=== PATIENT | female | born 1940 | race Caucasian/White ===

== ENCOUNTER 2019-04-18 15:15 | Inpatient (IN) | payer OTHER ==
[~2019-04-18] VITALS: Ht 144.8 cm; Wt 67.6 kg
[2019-04-18 15:32] VITALS: BP_SYST 132
[2019-04-18 16:53] LABS: HEMATOCRIT 27.4 % (36-48); HEMOGLOBIN 9.2 g/dL (12.0-16.0); MEAN CORPUSCULAR HEMOGLOBIN 35 pg (27-31); MEAN CORPUSCULAR HGB CONC 34 % (32-36); MEAN CORPUSCULAR VOLUME 103 fL (79.0-98.0); PLATELET COUNT (AUTO) 179 K/uL (130-430); RED BLOOD CELL COUNT(AUTO) 2.66 MIL/uL (4.2-6.2); RED CELL DISTRIBUTION WIDTH 21.5 % (9.0-15.0); WHITE BLOOD COUNT (AUTO) 9.6 K/uL (4.8-10.8)
[2019-04-18] MEDS ORDERED: cefTRIAXone 1 GM IVPB PREMIX 50 ML IV ONE (17:30)
[2019-04-18 17:31] LABS: INR 1.1 (0.8-1.2); PROTHROMBIN TIME 10.8 SECS (9.5-12.5)
[2019-04-18 17:32] LABS: ANION GAP 4 (5-15); CALCIUM 11.2 mg/dL (8.4-11.0); CHLORIDE 96 mmol/L (98-107); CREATININE 2.09 mg/dL (0.55-1.30); GLUCOSE 70 mg/dL (70-99); POTASSIUM 5.5 mmol/L (3.5-5.1); SODIUM SERUM 130 mmol/L (136-145); UREA NITROGEN, BLOOD 62 mg/dL (8-21)
[2019-04-18 17:33] LABS: BAND % (MANUAL) 5 % (0-6); LYMPHOCYTES % (MANUAL) 12 % (20-46)
[2019-04-18 17:34] LABS: BASOPHILS % (MANUAL) 0 % (0-2); EOSINOPHILS % (MANUAL) 7 % (0-7); MONOCYTES % (MANUAL) 17 % (0-11)
[2019-04-18 17:38] LABS: ALANINE AMINOTRANSFERASE 7 U/L (12-78); ALBUMIN 2.7 g/dL (3.4-4.8); ASPARTATE AMINOTRANSFERASE 16 U/L (10-37); TOTAL BILIRUBIN 0.6 mg/dL (0.0-1.0)
[2019-04-18 19:18] LABS: BILIRUBIN,URINE NEGATIVE (NEGATIVE); BLOOD, URINE 3+ (NEGATIVE); CLARITY/URINE SL CLOUDY (CLEAR); COLOR,URINE YELLOW (YELLOW); GLUCOSE,URINE NEGATIVE (NEGATIVE); KETONES,URINE NEGATIVE (NEGATIVE); LEUKOCYTE ESTERASE ,URINE 3+ (NEGATIVE); NITRITE, URINE NEGATIVE (NEGATIVE); PROTEIN URINE 2+ (NEGATIVE); UROBILINOGEN,URINE 0.2 (0.2-1.0)
[2019-04-18 19:40] LABS: BACTERIA,URINE FEW /HPF (None Seen); RBC,URINE 20-50 /HPF (0-3); URINE AMORPHOUS URATE 1+ /HPF (None Seen); WBC,URINE 20-50 /HPF (0-3)
[2019-04-18] MEDS ORDERED: IPRATROPIUM/ALBUTEROL SULFATE 3 ML AMPUL.NEB (DUONEB) INH PRN (20:45)
[2019-04-18 20:59] VITALS: BP_SYST 132
[2019-04-18 21:55] VITALS: BP_SYST 132
[2019-04-18] MEDS ORDERED: SODIUM POLYSTYRENE SULFONATE 15 GM/60 ML UDBTL GT ONE (22:45)
[2019-04-18] MEDS ORDERED: VANCOMYCIN HCL 1 GM/NS PREMIX 250 ML IV ONE (22:45)
[2019-04-18] MEDS: IPRATROPIUM/ALBUTEROL SULFATE 3 ML AMPUL.NEB (DUONEB) INH SCH (23:03)
[2019-04-19] VITALS: BP_SYST 114
[2019-04-19] MEDS ORDERED: VANCOMYCIN HCL 1000 MG/VIAL IV ONE ×2 (00:53→21:11)
[2019-04-19] MEDS ORDERED: PIPERACILLIN/TAZOBACTAM 2.25 GM VIAL IV ONE (00:53)
[2019-04-19] MEDS: PIPERACILLIN/TAZO 2.25G/DEX-IS 50 ML IV SCH ×2 (02:29→08:26)
[2019-04-19 05:59] LABS: BASOPHILS # (AUTO) 0.1 K/uL (0.0-0.2); BASOPHILS % (AUTO) 0.5 % (0.0-2.0); EOSINOPHILS # (AUTO) 0.4 K/uL (0.0-0.4); EOSINOPHILS % (AUTO) 3.8 % (0.0-4.0); HEMOGLOBIN 8.6 g/dL (12.0-16.0); LYMPHOCYTES # (AUTO) 1.2 K/uL (1.0-5.5); LYMPHOCYTES % (AUTO) 10.6 % (20.5-51.5); MEAN CORPUSCULAR HEMOGLOBIN 34 pg (27-31); MEAN CORPUSCULAR HGB CONC 33 % (32-36); MEAN CORPUSCULAR VOLUME 103 fL (79.0-98.0); MONOCYTES # (AUTO) 1.9 K/uL (0.0-1.0); MONOCYTES % (AUTO) 16.3 % (1.7-9.3); NEUTROPHILS # (AUTO) 8.1 K/uL (1.8-7.7); NEUTROPHILS % (AUTO) 68.8 % (40.0-70.0); PLATELET COUNT (AUTO) 175 K/uL (130-430); RED BLOOD CELL COUNT(AUTO) 2.52 MIL/uL (4.2-6.2); RED CELL DISTRIBUTION WIDTH 21.5 % (9.0-15.0)
[2019-04-19 06:26] LABS: INR 1.1 (0.8-1.2); PROTHROMBIN TIME 10.8 SECS (9.5-12.5)
[2019-04-19 06:48] LABS: SODIUM SERUM 133 mmol/L (136-145)
[2019-04-19 06:49] LABS: ANION GAP 9 (5-15); ASPARTATE AMINOTRANSFERASE 20 U/L (10-37); CALCIUM 10.6 mg/dL (8.4-11.0); CHLORIDE 97 mmol/L (98-107); CREATININE 2.38 mg/dL (0.55-1.30); GLUCOSE 108 mg/dL (70-99); POTASSIUM 5.5 mmol/L (3.5-5.1); TOTAL BILIRUBIN 0.6 mg/dL (0.0-1.0); UREA NITROGEN, BLOOD 71 mg/dL (8-21)
[2019-04-19 06:50] LABS: ALANINE AMINOTRANSFERASE 7 U/L (12-78); ALBUMIN 2.5 g/dL (3.4-4.8); FREE T4 (FREE THYROXINE) 0.9 ng/dL (0.6-1.6); PHOSPHORUS 4.4 mg/dL (2.7-4.5); THYROID STIMULATING HORMONE 12.24 uIu/mL (0.34-4.82)
[2019-04-19 07:04] LABS: WHITE BLOOD COUNT (AUTO) 11.8 K/uL (4.8-10.8)
[2019-04-19] MEDS: IPRATROPIUM/ALBUTEROL SULFATE 3 ML AMPUL.NEB (DUONEB) INH SCH ×5 (07:24→23:09)
[2019-04-19 08:00] VITALS: BP_SYST 118
[2019-04-19 12:00] VITALS: BP_SYST 106
[2019-04-19] MEDS ORDERED: MIDO10TA GT ×2 (13:32→13:49)
[2019-04-19] MEDS ORDERED: ALBUMIN HUMAN 25% 100 ML IV ONE (13:45)
[2019-04-19] MEDS ORDERED: LEVE1000 GT (13:49)
[2019-04-19] MEDS ORDERED: DEPAK250 GT (13:49)
[2019-04-19] MEDS ORDERED: GABA-529 GT (13:49)
[2019-04-19] MEDS ORDERED: LANS30CA56 GT (13:49)
[2019-04-19] MEDS ORDERED: LEVO75TA7 GT (13:49)
[2019-04-19] MEDS ORDERED: IPRA4AER INH (13:49)
[2019-04-19] MEDS ORDERED: DEXT30DR6 EACH EYE (13:49)
[2019-04-19] MEDS ORDERED: LOVI40 SQ (13:49)
[2019-04-19] MEDS ORDERED: TYLL650 GT (13:49)
[2019-04-19] MEDS ORDERED: HEPARIN SODIUM,PORCINE 5000 UNITS/ML VIAL MC ONE (16:45)
[2019-04-19 16:50] VITALS: BP_SYST 99
[2019-04-19 20:00] VITALS: BP_SYST 102
[2019-04-19] MEDS: MEROPENEM 500 MG in NS 50 ML IV SCH (21:19)
[2019-04-19] MEDS ORDERED: VANCOMYCIN HCL 1 GM/NS PREMIX 250 ML IV ONE (22:00)
[2019-04-20 01:11] VITALS: BP_SYST 109
[2019-04-20] MEDS: IPRATROPIUM/ALBUTEROL SULFATE 3 ML AMPUL.NEB (DUONEB) INH SCH ×5 (02:10→19:54)
[2019-04-20 05:47] LABS: BASOPHILS % (AUTO) 0.5 % (0.0-2.0); EOSINOPHILS # (AUTO) 0.1 K/uL (0.0-0.4); HEMATOCRIT 23.2 % (36-48); HEMOGLOBIN 7.9 g/dL (12.0-16.0); LYMPHOCYTES # (AUTO) 1.4 K/uL (1.0-5.5); LYMPHOCYTES % (AUTO) 12.4 % (20.5-51.5); MEAN CORPUSCULAR HEMOGLOBIN 35 pg (27-31); MEAN CORPUSCULAR HGB CONC 34 % (32-36); MEAN CORPUSCULAR VOLUME 102 fL (79.0-98.0); MONOCYTES # (AUTO) 1.9 K/uL (0.0-1.0); MONOCYTES % (AUTO) 17.8 % (1.7-9.3); NEUTROPHILS # (AUTO) 7.5 K/uL (1.8-7.7); NEUTROPHILS % (AUTO) 68.3 % (40.0-70.0); PLATELET COUNT (AUTO) 137 K/uL (130-430); RED BLOOD CELL COUNT(AUTO) 2.27 MIL/uL (4.2-6.2); RED CELL DISTRIBUTION WIDTH 21.3 % (9.0-15.0)
[2019-04-20 06:12] LABS: ALANINE AMINOTRANSFERASE 10 U/L (12-78); ALBUMIN 2.9 g/dL (3.4-4.8); ANION GAP 5 (5-15); ASPARTATE AMINOTRANSFERASE 18 U/L (10-37); CALCIUM 10.4 mg/dL (8.4-11.0); CHLORIDE 101 mmol/L (98-107); CREATININE 1.75 mg/dL (0.55-1.30); GLUCOSE 122 mg/dL (70-99); PHOSPHORUS 3.7 mg/dL (2.7-4.5); POTASSIUM 3.6 mmol/L (3.5-5.1); SODIUM SERUM 139 mmol/L (136-145); TOTAL BILIRUBIN 0.5 mg/dL (0.0-1.0); UREA NITROGEN, BLOOD 44 mg/dL (8-21)
[2019-04-20 08:21] VITALS: BP_SYST 127; BP_SYST 128
[2019-04-20] MEDS: MEROPENEM 500 MG in NS 50 ML IV SCH ×2 (08:35→21:00)
[2019-04-20] MEDS ORDERED: EPOETIN ALFA 10,000 UNITS/ML VIAL SUBCUT ONE (10:45)
[2019-04-20 10:52] LABS: TOTAL IRON BIND. CAPACITY 202 ug/dL (250-450)
[2019-04-20 12:46] VITALS: BP_SYST 114
[2019-04-20 16:14] VITALS: BP_SYST 108
[2019-04-20] MEDS: MUPIROCIN 2% TOPICAL OINTMENT 22 GM NS SCH ×2 (16:17→21:00)
[2019-04-20] MEDS: SOD FERRIC GLUC COMPLEX/SUC 125 MG in NS 100 ML IV SCH (16:18)
[2019-04-20] MEDS: ACETAMINOPHEN 650 MG/20.3 ML UDC PO PRN (18:09)
[2019-04-20 20:00] VITALS: BP_SYST 112
[2019-04-21 00:06] VITALS: BP_SYST 96
[2019-04-21] MEDS: IPRATROPIUM/ALBUTEROL SULFATE 3 ML AMPUL.NEB (DUONEB) INH SCH ×7 (02:48→23:26)
[2019-04-21 08:00] VITALS: BP_SYST 111
[2019-04-21] MEDS: MUPIROCIN 2% TOPICAL OINTMENT 22 GM NS SCH ×2 (08:44→20:38)
[2019-04-21] MEDS: MEROPENEM 500 MG in NS 50 ML IV SCH ×2 (08:44→20:38)
[2019-04-21 08:59] LABS: ANION GAP 12 (5-15); CALCIUM 10.8 mg/dL (8.4-11.0); CHLORIDE 100 mmol/L (98-107); CREATININE 2.54 mg/dL (0.55-1.30); GLUCOSE 128 mg/dL (70-99); POTASSIUM 4.4 mmol/L (3.5-5.1); SODIUM SERUM 142 mmol/L (136-145); UREA NITROGEN, BLOOD 70 mg/dL (8-21)
[2019-04-21] MEDS ORDERED: ENOXAPARIN SODIUM 30 MG/0.3 ML SYRINGE SUBCUT SCH (09:00)
[2019-04-21 09:03] LABS: BASOPHILS # (AUTO) 0.1 K/uL (0.0-0.2); BASOPHILS % (AUTO) 0.6 % (0.0-2.0); EOSINOPHILS # (AUTO) 0.2 K/uL (0.0-0.4); EOSINOPHILS % (AUTO) 1.1 % (0.0-4.0); HEMATOCRIT 23.3 % (36-48); HEMOGLOBIN 7.8 g/dL (12.0-16.0); LYMPHOCYTES # (AUTO) 1.4 K/uL (1.0-5.5); LYMPHOCYTES % (AUTO) 9.8 % (20.5-51.5); MEAN CORPUSCULAR HEMOGLOBIN 35 pg (27-31); MEAN CORPUSCULAR HGB CONC 33 % (32-36); MEAN CORPUSCULAR VOLUME 104 fL (79.0-98.0); MONOCYTES # (AUTO) 2.4 K/uL (0.0-1.0); MONOCYTES % (AUTO) 17.4 % (1.7-9.3); NEUTROPHILS % (AUTO) 71.1 % (40.0-70.0); PLATELET COUNT (AUTO) 122 K/uL (130-430); RED BLOOD CELL COUNT(AUTO) 2.25 MIL/uL (4.2-6.2); RED CELL DISTRIBUTION WIDTH 21.5 % (9.0-15.0); WHITE BLOOD COUNT (AUTO) 14.1 K/uL (4.8-10.8)
[2019-04-21 09:05] LABS: ALANINE AMINOTRANSFERASE 11 U/L (12-78); ALBUMIN 2.6 g/dL (3.4-4.8); ASPARTATE AMINOTRANSFERASE 27 U/L (10-37); PHOSPHORUS 5.7 mg/dL (2.7-4.5); TOTAL BILIRUBIN 0.5 mg/dL (0.0-1.0)
[2019-04-21 10:25] VITALS: BP_SYST 111
[2019-04-21 12:00] VITALS: BP_SYST 131
[2019-04-21] MEDS ORDERED: HEPARIN SODIUM, PORCINE 10,000 UNITS/ 10 ML VIAL MC ONE (13:45)
[2019-04-21] MEDS: SOD FERRIC GLUC COMPLEX/SUC 125 MG in NS 100 ML IV SCH (14:06)
[2019-04-21 16:00] VITALS: BP_SYST 131
[2019-04-21] MEDS: ACETAMINOPHEN 650 MG/20.3 ML UDC PO PRN (18:20)
[2019-04-21 20:00] VITALS: BP_SYST 85
[2019-04-22 00:32] VITALS: BP_SYST 102
[2019-04-22] MEDS: IPRATROPIUM/ALBUTEROL SULFATE 3 ML AMPUL.NEB (DUONEB) INH SCH ×6 (03:49→23:30)
[2019-04-22 07:22] LABS: BASOPHILS # (AUTO) 0.2 K/uL (0.0-0.2); BASOPHILS % (AUTO) 1.3 % (0.0-2.0); EOSINOPHILS # (AUTO) 0.1 K/uL (0.0-0.4); EOSINOPHILS % (AUTO) 0.5 % (0.0-4.0); HEMATOCRIT 26.7 % (36-48); HEMOGLOBIN 9.1 g/dL (12.0-16.0); LYMPHOCYTES # (AUTO) 1.9 K/uL (1.0-5.5); LYMPHOCYTES % (AUTO) 14.5 % (20.5-51.5); MEAN CORPUSCULAR HEMOGLOBIN 34 pg (27-31); MEAN CORPUSCULAR HGB CONC 34 % (32-36); MEAN CORPUSCULAR VOLUME 99 fL (79.0-98.0); MONOCYTES # (AUTO) 2.4 K/uL (0.0-1.0); MONOCYTES % (AUTO) 18.1 % (1.7-9.3); NEUTROPHILS # (AUTO) 8.8 K/uL (1.8-7.7); NEUTROPHILS % (AUTO) 65.6 % (40.0-70.0); PLATELET COUNT (AUTO) 120 K/uL (130-430); RED CELL DISTRIBUTION WIDTH 20.4 % (9.0-15.0); WHITE BLOOD COUNT (AUTO) 13.4 K/uL (4.8-10.8)
[2019-04-22 07:42] LABS: ANION GAP 9 (5-15); CALCIUM 9.5 mg/dL (8.4-11.0); CHLORIDE 98 mmol/L (98-107); CREATININE 2.05 mg/dL (0.55-1.30); GLUCOSE 105 mg/dL (70-99); POTASSIUM 3.9 mmol/L (3.5-5.1); SODIUM SERUM 135 mmol/L (136-145); UREA NITROGEN, BLOOD 47 mg/dL (8-21)
[2019-04-22 08:00] VITALS: BP_SYST 92
[2019-04-22] MEDS: MUPIROCIN 2% TOPICAL OINTMENT 22 GM NS SCH (09:55)
[2019-04-22] MEDS: ACETAMINOPHEN 650 MG/20.3 ML UDC PO PRN (09:56)
[2019-04-22] MEDS: MEROPENEM 500 MG in NS 50 ML IV SCH (11:42)
[2019-04-22 12:30] VITALS: BP_SYST 104
[2019-04-22] MEDS: MORPHINE SULFATE 10 MG/5 ML ORAL SOL. UDC GT SCH ×2 (15:15→21:15)
[2019-04-22] MEDS ORDERED: ONDANSETRON HCL 4 MG/2 ML VIAL IVP PRN (15:15)
[2019-04-22] MEDS ORDERED: MORPHINE SULFATE 10 MG/5 ML ORAL SOL. UDC PO ONE (15:15)
[2019-04-22 16:15] VITALS: BP_SYST 109
[2019-04-22] MEDS: LEVOFLOXACIN 250 MG/D5W 50 ML IV SCH (17:17)
[2019-04-22] MEDS ORDERED: VANCOMYCIN HCL 1 GM/NS PREMIX 250 ML IV SCH (18:30)
[2019-04-22 19:50] VITALS: BP_SYST 82
[2019-04-22] MEDS ORDERED: VANCOMYCIN HCL 1,000 MG in NS 250 ML IV SCH (21:00)
[2019-04-22] MEDS ORDERED: VANCOMYCIN HCL 1000 MG/VIAL IV ONE (22:34)
[2019-04-22] MEDS ORDERED: MIDODRINE HCL 5 MG TABLET (PROAMATINE) GT SCH (23:00)
[2019-04-23] VITALS (10 sets, daily range): BP systolic 93–109
[2019-04-23] MEDS: MUPIROCIN 2% TOPICAL OINTMENT 22 GM NS SCH ×2 (01:21→09:06)
[2019-04-23] MEDS: MORPHINE SULFATE 10 MG/5 ML ORAL SOL. UDC GT SCH ×3 (03:15→14:41)
[2019-04-23] MEDS: IPRATROPIUM/ALBUTEROL SULFATE 3 ML AMPUL.NEB (DUONEB) INH SCH ×5 (04:01→19:45)
[2019-04-23] MEDS: MIDODRINE HCL 5 MG TABLET (PROAMATINE) GT SCH ×2 (06:06→13:44)
[2019-04-23] MEDS ORDERED: LevETIRAcetam 500 MG/5 ML UDC ORAL LIQUID GT SCH ×2 (09:00→21:00)
[2019-04-23] MEDS ORDERED: LEVOTHYROXINE SODIUM 0.075 MG TABLET GT SCH (09:00)
[2019-04-23] MEDS: PEG 400/HYPROMELLOSE/GLYCERIN 15 ML DROPS OP SCH ×3 (09:36→17:00)
[2019-04-23] MEDS: ACETAMINOPHEN 650 MG/20.3 ML UDC PO PRN (13:46)
[2019-04-23] MEDS ORDERED: GABAPENTIN 100 MG CAPSULE GT SCH (14:00)
[2019-04-23] MEDS ORDERED: DOCUSATE SODIUM 100 MG/10 ML UDC GT ONE (15:30)
[2019-04-23] MEDS ORDERED: DOCUSATE SODIUM 100 MG/10 ML UDC PO ONE (15:30)
[2019-04-23] MEDS: LEVOFLOXACIN 250 MG/D5W 50 ML IV SCH (18:38)
[2019-04-24] MEDS ORDERED: DOCUSATE SODIUM 100 MG/10 ML UDC GT SCH (09:00)
[2019-04-24] MEDS ORDERED: DOCUSATE SODIUM 100 MG/10 ML UDC PO SCH (09:00)
[2019-04-24] MEDS ORDERED: EPOETIN ALFA 10,000 UNITS/ML VIAL SUBCUT SCH (09:00)
== END 2019-04-23 20:00 | DRG 870 ==
LOC: SED 15:15 → STU 17:57
PROVIDERS: ADMIT Internal Medicine; ATTEND Internal Medicine
PROC: 5A1955Z Respiratory Ventilation, Greater than 96 Consecutive Hours (ICD-10-PCS; 2019-04-18)
PROC: 5A1D70Z Performance of Urinary Filtration, Intermittent, Less than 6 Hours Per Day (ICD-10-PCS; principal; 2019-04-19)
PROC: 5A1D70Z Performance of Urinary Filtration, Intermittent, Less than 6 Hours Per Day (ICD-10-PCS; 2019-04-21)
PROC: 30233N1 Transfusion of Nonautologous Red Blood Cells into Peripheral Vein, Percutaneous Approach (ICD-10-PCS; 2019-04-21)
DX: A41.9 Sepsis, unspecified organism (principal); G93.41 Metabolic encephalopathy; J96.20 Acute and chronic respiratory failure, unspecified whether with hypoxia or hypercapnia; R53.2 Functional quadriplegia; N18.6 End stage renal disease; I50.43 Acute on chronic combined systolic (congestive) and diastolic (congestive) heart failure; E44.0 Moderate protein-calorie malnutrition; E87.1 Hypo-osmolality and hyponatremia; I13.2 Hypertensive heart and chronic kidney disease with heart failure and with stage 5 chronic kidney disease, or end stage renal disease; L03.115 Cellulitis of right lower limb; L03.116 Cellulitis of left lower limb; N39.0 Urinary tract infection, site not specified; I48.20 Chronic atrial fibrillation, unspecified; E72.20 Disorder of urea cycle metabolism, unspecified; J95.851 Ventilator associated pneumonia; E87.5 Hyperkalemia; D63.8 Anemia in other chronic diseases classified elsewhere; L89.90 Pressure ulcer of unspecified site, unspecified stage; E03.9 Hypothyroidism, unspecified; G40.909 Epilepsy, unspecified, not intractable, without status epilepticus; G89.4 Chronic pain syndrome; Z96.653 Presence of artificial knee joint, bilateral; M16.0 Bilateral primary osteoarthritis of hip; Z93.1 Gastrostomy status; Z93.0 Tracheostomy status; Z92.3 Personal history of irradiation; Z99.2 Dependence on renal dialysis; Z90.11 Acquired absence of right breast and nipple; Z87.01 Personal history of pneumonia (recurrent); Z85.3 Personal history of malignant neoplasm of breast; Z78.9 Other specified health status; Z74.01 Bed confinement status; Z79.899 Other long term (current) drug therapy; Z68.32 Body mass index [BMI] 32.0-32.9, adult; Z88.1 Allergy status to other antibiotic agents; Z88.8 Allergy status to other drugs, medicaments and biological substances
CPT/HCPCS: 36415; 70450-TC; 71045; 80048; 80053; 81000-TC; 82140-TC; 82728; 83540-TC; 83550-TC; 83605; 83880; 84100-TC; 84439; 84443-TC; 84484; 85007; 85025; 85027; 85610-TC; 85730-TC; 86886; 86900; 86901; 86920; 87040-TC; 87081; 87086; 90935; 90937; 93005; 93306; 94002; 94003; 94640; 94760; 95816; 99285; C1751; G0378; J0696; J0885; J1644; J1956; J2185; J2543; J2916; J3370; J7030; J7050; J7060; J7620; P9021; P9046